=== PATIENT | female | born 1980 | race Caucasian/White ===

== ENCOUNTER 2024-03-09 14:11 | Emergency (ER) | payer OTHER ==
[~2024-03-09] VITALS: Ht 157.5 cm; Wt 74.4 kg
[2024-03-09] MEDS ORDERED: AMOX250L PO (15:00)
[2024-03-09] MEDS ORDERED: KETO10TA2 PO (15:00)
[2024-03-09] MEDS: KETOROLAC 30MG VIAL (30MG/ML) IM ONE (16:57)
[2024-03-09 17:01] VITALS: BP 139/82; PULSE 83; RESP 20; O2SAT 99
== END 2024-03-09 17:07 | disposition home or self-care (01) ==
LOC: EDH 14:11
DX: J32.9 Chronic sinusitis, unspecified (principal)
CPT/HCPCS: 99283; 96372; J1885

== ENCOUNTER 2024-03-10 21:14 | Emergency (ER) | payer OTHER ==
[~2024-03-10] VITALS: Ht 157.5 cm; Wt 74.4 kg
[~2024-03-10 21:14] MED LIST: AMOX250L PO; KETO10TA2 PO
[2024-03-10] MEDS: DIAZEPAM 5 MG TABLET PO ONE (23:04)
[2024-03-10] MEDS: IBUPROFEN 600 MG TABLET PO ONE (23:04)
[2024-03-10] MEDS: FAMOTIDINE 20MG TAB PO ONE (23:05)
[2024-03-10] MEDS: TIZANIDINE HCL 2 MG TABLET PO SCH (23:05)
[2024-03-10] MEDS: PREDNISONE 20 MG TABLET PO ONE (23:05)
[2024-03-11 00:49] VITALS: BP 125/66; PULSE 98; RESP 18; O2SAT 99
== END 2024-03-11 00:50 | disposition home or self-care (01) ==
LOC: EDH 21:14
DX: G44.209 Tension-type headache, unspecified, not intractable (principal)
CPT/HCPCS: 70450; 81025

== ENCOUNTER → 2024-05-05 | Outpatient (CLI) | payer OTHER | END | disposition home or self-care (01) | LOC: RAH 14:10 | PROVIDERS: ATTEND Nurse Practitioner Family | DX: G43.909 Migraine, unspecified, not intractable, without status migrainosus (principal) | CPT/HCPCS: 70551 ==

== ENCOUNTER 2025-05-08 19:35 | Emergency (ER) | payer OTHER ==
[~2025-05-08] VITALS: Ht 157.5 cm; Wt 65.8 kg
--- NOTE | 2025-05-08 20:28 | NUR ---
consent, labs, and hcg pending
[2025-05-08 20:36] LABS: IMMATURE GRANULOCYTE ABSOLUTE 0.02 K/uL (0-1); NUCLEATED RED BLOOD CELLS 0.0 % (0.0-0.19); PLATELET COUNT (AUTO) 305 K/uL (130-400); RED BLOOD CELL COUNT(AUTO) 4.21 MIL/uL (4.00-5.50); RED CELL DISTRIBUTION WIDTH 13.4 % (11.0-15.5); WHITE BLOOD COUNT (AUTO) 6.8 K/uL (4.8-10.8)
[2025-05-08] MEDS: 0.9%NACL 1000ML 1,000 ML IV ONE (20:39)
[2025-05-08 20:49] LABS: RAPID GROUP A STREP negative (NEGATIVE)
[2025-05-08 20:51] LABS: CREATININE 1.1 mg/dL (0.5-1.0); GLOMERULAR FILTR. RATE CALC 64.0 mL/min (>90); GLUCOSE,RANDOM 99.0 mg/dL (70-105); SODIUM SERUM 144.0 mmol/L (136-145); UREA NITROGEN, BLOOD 16.0 mg/dL (7-18)
[2025-05-08] MEDS: OXYmetazoline HCL SPRAY 100 SPRAYS/15 ML BOTTLE EN ONE (20:56)
[2025-05-08 20:59] LABS: COVID19 (SARS ANTIGEN RAPID) PRESUMPTIVE NEGATIVE (NEGATIVE); INFLUENZA TYPE A Negative For Type A (NEGATIVE); INFLUENZA TYPE B Negative For Type B (NEGATIVE)
[2025-05-08] MEDS ORDERED: IOHEXOL-350 75 ML VIAL IV ONE (21:20)
--- NOTE | 2025-05-08 21:32 | ERN ---
General Chief Complaint: Other Problems Stated Complaint: HEAD PAIN Time Seen by MD: 19:38 Source: patient History of Present Illness Initial Comments Patient is a healthy 45-year-old female who has had a head pain for the last two days. She said it seems to be centered around her left zygomatic arch and then migrates to her ear. The pain is also associated with some tingling and dental pain in her upper mouth. She has been treated in the past for headaches but those tender to start on the left mastoid process and migrate down to the shoulder this when feels different. There was no associated prodrome. Timing/Duration: 24 hours Severity: moderate Allergies: Coded Allergies: No Known Drug Allergies (Unverified Allergy, Unknown, 03/09/24) Home Meds Active Scripts Ketorolac Tromethamine (Ketorolac Tromethamine) 10 Mg Tablet, 10 MG PO BID for 7 Days, #14 TAB Prov:RONNIE GRIGGS 03/09/24 Amoxicillin Trihydrate (Amoxicillin 250 mg/5 ml Susp) 250 Mg/5 Ml Susp, 500 MG PO BID for 7 Days, #14 ML Prov:RONNIE GRIGGS 03/09/24 Past Medical History Past Medical History: No Pertinent History Medical History Other: POST DEPRESSION Past Surgical History: Family History Family History: Negative Social History Social History: Negative, Lives with family Female( History) History: Not Applicable LMP: May 02, 2025 Constitutional: (-) chills, (-) diaphoresis, (-) fever, (-) malaise, (-) weakn ess, (-) other documentation EENTM: (-) eye pain, (-) blurred vision, (-) tearing, (-) double vision, (-) ear pain, (-) ear discharge, (-) nose pain, (-) nose congestion, (-) throat pain, (-) Throat swelling, (-) mouth pain, (-) tooth pain, (-) mouth swelling, (-) other documentation Respiratory: (-) cough, (-) orthopnea, (-) short of breath, (-) stridor, (-) wheezing, (-) other documentation Cardiovascular: (-) chest pain, (-) edema, (-) palpitations, (-) syncope, (-) dyspnea on exertion, (-) other documentation Gastrointestinal/Abdominal: (-) nausea, (-) vomiting, (-) diarrhea, (-) abdominal pain, (-) abdominal distention, (-) constipation, (-) rectal bleeding, (-) dark stool/melena, (-) other documentation Genitourinary: (-) vaginal discharge, (-) vaginal bleeding, (-) dysuria, (-) frequency, (-) hematuria, (-) pain, (-) other documentation Musculoskeletal: (-) Neck pain, (-) back pain, (-) Flank Pain, (-) joint pain, (-) joint swelling, (-) muscle pain, (-) muscle stiffness, (-) gout, (-) other documentation Physical Exam General Appearance: (+) no apparent distress Orientation: (+) alert, (+) oriented x 3 Head/Face Trauma: No Eye: bilateral eye normal inspection, bilateral eye PERRL, bilateral eye EOMI Ear, Nose, Throat: (+) hearing grossly normal, (+) normal ENT inspection, (+) moist mucous membraine Neck: (+) normal inspection, (+) supple, (+) full range of motion Respiratory: (+) chest non-tender, (+) lungs clear, (+) well ventilated Heart: (+) regular, (+) no gallop Vascular: (+) no edema, (+) normal peripheral pulse Gastrointestinal: (+) soft, (+) non-tender, (+) bowel sound present Extremities: (+) normal range of motion Results Laboratory and Microbiology Lab and Micro Result Laboratory Tests Test 05/08/25 20:15 05/08/25 20:30 White Blood Count 6.8 K/uL (4.8-10.8) Red Blood Count 4.21 MIL/uL (4.00-5.50) Hemoglobin 13.7 g/dL (12.0-16.0) Hematocrit 40.5 % (36-48) Mean Corpuscular Volume 96.2 fL (79-99) Mean Corpuscular Hemoglobin 32.5 pg (27.0-33.0) Mean Corpuscular Hemoglobin Concent 33.8 g/dL (32.0-36.0) Red Cell Distribution Width 13.4 % (11.0-15.5) Platelet Count 305 K/uL (130-400) Mean Platelet Volume 8.9 fL (7.5-10.5) Immature Granulocyte % (Auto) 0.3 % (0-1) Neutrophils (%) (Auto) 50.1 % (40.0-77.0) Lymphocytes (%) (Auto) 35.4 % (21.0-51.0) Monocytes (%) (Auto) 10.8 % (3.0-13.0) Eosinophils (%) (Auto) 2.7 % (0.0-8.0) Basophils (%) (Auto) 0.7 % (0.0-5.0) Neutrophils # (Auto) 3.4 K/uL (1.8-7.7) Lymphocytes # (Auto) 2.4 K/uL (1.0-4.8) Monocytes # (Auto) 0.7 K/uL (0.1-1.0) Eosinophils # (Auto) 0.18 K/uL (0.00-0.70) Basophils # (Auto) 0.05 K/uL (0.00-0.20) Absolute Immature Granulocyte (auto 0.02 K/uL (0-1) Nucleated Red Blood Cells 0.0 % (0.0-0.19) Sodium Level 144 mmol/L (136-145) Potassium Level 4.1 mmol/L (3.5-5.1) Chloride Level 106 mmol/L (101-111) Carbon Dioxide Level 30 mmol/L (21-32) Blood Urea Nitrogen 16 mg/dL (7-18) Creatinine 1.1 mg/dL (0.5-1.0) H Glomerular Filtration Rate Calc 64 mL/min (>90) Random Glucose 99 mg/dL (70-105) Total Calcium 9.1 mg/dL (8.5-10.1) Serum Test, Qualitative NEGATIVE (NEGATIVE) Influenza Type A Antigen Negative For Type A Influenza Type B Antigen Negative For Type B SARS-CoV-2 Antigen (Rapid) PRESUMPTIVE NEGATIVE Group A Streptococcus Rapid negative (NEGATIVE) MDM MDM: Differential diagnosis: Migraines, upper respiratory tract infection including the sinuses and Eustachian tubes. Muscle tension Rationale: Tests considered and ordered secondary to shared decision making include: Previous outside records reviewed: Old ER visits. Risk of complication and/or morbidity or mortality of patient management: None Medications-Per medication reconciliation Need for hospitalization: Patient does meet criteria for hospitalization. Need for emergency major/minor surgery: No There are no social concerns with this patient. Prescription drug management Prescriptions will include symptomatic care Patient's prior external medical records from other ER visits were reviewed by me as indicated. Prior testing and results from previous visits were reviewed. Prior tests were taken into account with medical decision making and resource utilization, independent historian/historians were used to obtain complete medical history. I independently interpreted the test that were performed, results were reviewed by me and considered findings on radiology if ordered. Patient was given some migraine medications and she says it has resolved her headaches pain by about 80%. CT scan does show fluid in her paranasal sinus on the right which is where she points to when she talks about her face pain. We will discharge her with recommendations for Sudafed and Afrin spray. She can see your primary care physician about migraine therapy. ED Course Orders Procedure Category Date Status Time Cbc With Differential LAB 05/08/25 Complete 19:54 0.9%Nacl 1000ml (Ns PHA 05/08/25 Complete 1000ml) 20:00 Basic Metabolic Panel LAB 05/08/25 Complete 19:54 Testing, LAB 05/08/25 Complete Serum Hcg 19:54 Metoclopramide 10 PHA 05/08/25 Complete Mg/2 Ml Vial (Reglan 1 20:00 Acetaminophen 500mg PHA 05/08/25 Complete Tab (Tylenol 500mg T 20:00 Diphenhydramine Hcl PHA 05/08/25 Complete (Benadryl Inj) 20:00 Covid19 (Sars Antigen LAB 05/08/25 Complete Rapid) 19:54 Influenza Type A & B, LAB 05/08/25 Complete Rapid 19:54 Rapid (Group A Strep) LAB 05/08/25 Complete 19:54 Oxymetazoline Hcl PHA 05/08/25 Complete [place] (Afrin) 20:[address] 05/08/25 Taken W/Contrast 20:17 Iohexol (Omnipaque) PHA 05/08/25 Complete 21:20 Current Medications Medications (Trade) Dose Ordered Sig/Angela Route PRN Reason Start Time Stop Time Status Last Admin Dose Admin Acetaminophen (TYLenol 500MG TAB) 1,000 mg ONCE ONCE PO 05/08/25 20:00 05/08/25 20:01 DC 05/08/25 20:40 Diphenhydramine HCl (BENAdryl INJ) 25 mg ONCE ONCE IV 05/08/25 20:00 05/08/25 20:01 DC 05/08/25 20:39 Iohexol (Omnipaque) 75 ml STK-MED ONCE IV 05/08/25 21:20 05/08/25 21:22 DC Metoclopramide HCl (regLAN 10MG IV) 10 mg ONCE ONCE IVP 05/08/25 20:00 05/08/25 20:01 DC 05/08/25 20:39 Oxymetazoline HCl (AFrin) 1 sprays ONCE ONCE EN 05/08/25 20:30 05/08/25 20:35 DC 05/08/25 20:56 Sodium Chloride 1,000 ml @ 0 mls/hr ONCE ONCE IV 05/08/25 20:00 05/08/25 20:01 DC 05/08/25 20:39 Vital Signs Date Time Temp Pulse Resp B/P (MAP) Pulse Ox O2 Delivery O2 Flow Rate FiO2 05/08/25 22:42 98.2 74 19 127/74 99 Room Air* 0 21 05/08/25 19:44 98.2 78 19 125/77 99 Room Air* 0 21 05/08/25 19:37 98.2 78 19 125/77 99 Room Air 0 DX & DISP Disposition: Discharge Departure Impression: Primary Impression: Sinusitis Additional Impression: Migraine Condition: Stable Additional Instructions: Your laboratory analysis was normal. Your nasal swabs were negative. You do have a little fluid in your right sinus. I do not think you need antibiotics to treat this. You can treat it with Afrin spray or Sudafed as we discussed. Please follow-up with your primary care physician for further management of your migraines. Also if you have unremitting pain nausea vomiting to the point that your unable to tolerate food please come back to the emergency room. Referrals: CHARLIE CHOWDHURY (PCP) DEYSI RODRIGUEZ MD May 08, 2025 21:32
[2025-05-08 22:42] VITALS: BP 127/74; PULSE 74; RESP 19; TEMP 98.2; O2SAT 99
--- NOTE | 2025-05-08 22:54 | HMCIMG ---
EXAM: CT Maxillofacial with Intravenous Contrast. CLINICAL HISTORY: Sinus pain TECHNIQUE: Axial computed tomography images of the face with intravenous contrast. Sagittal and coronal reformatted images were generated. COMPARISON: None provided. FINDINGS: BONES: No acute fracture or aggressive appearing osseous lesion. The mandible is intact. SOFT TISSUES: The soft tissues are unremarkable. No radiopaque foreign body or focal fluid collection. SINUSES: Minimal mucosal thickening along the floor of the right maxillary mass sinus measuring up to 4 mm. Remainder of the paranasal sinuses and mastoid air cells are clear. ORBITS: The orbits are normal. No retrobulbar hematoma or mass. Dental amalgam artifacts are identified. Mild heterogeneous coarse attenuation of the thyroid gland, probable changes of multinodular goiter. Subcentimeter neck lymph nodes are present bilaterally. IMPRESSION: Mild chronic right maxillary sinusitis. Partially visualized mild heterogeneous coarse attenuation of the thyroid gland, probable changes of multinodular goiter. Recommend ultrasound of the gallbladder for further evaluation. /[place]
== END 2025-05-08 22:51 | disposition home or self-care (01) ==
LOC: EDH 19:35
DX: J32.0 Chronic maxillary sinusitis (principal); G43.909 Migraine, unspecified, not intractable, without status migrainosus; Z79.899 Other long term (current) drug therapy; Z20.822 Contact with and (suspected) exposure to COVID-19
CPT/HCPCS: 99285; 96374; 70487; 96375; 87426; 80048; 84703; 85025; 87880; 87804 ×2; 36415; J1200; J7030; J2765; Q9967